=== PATIENT | female | born 1985 | race Two or more races ===

== ENCOUNTER 2023-01-25 15:09 | Inpatient (IN) | payer OTHER ==
[~2023-01-25] VITALS: Ht 162.6 cm; Wt 84.4 kg
[2023-02-08] MEDS ORDERED: PRENATAL PLUS1 EAC1 PO (00:32)
== END 2023-02-10 13:33 | disposition home or self-care (01) | DRG 807 ==
LOC: OB/GYN 02-07 20:09 → LDR 02-07 20:09 → OB/GYN 02-07 21:16 → LDR 02-07 21:20 → OB/GYN 02-08 09:05 → SURG 02-10 09:15 → OB/GYN 02-10 13:33
PROVIDERS: ADMIT Obstetrics & Gynecology Gynecology; ATTEND Obstetrics & Gynecology Gynecology
PROC: 10E0XZZ Delivery of Products of Conception, External Approach (ICD-10-PCS; principal; 2023-02-08)
PROC: 4A1HXCZ Monitoring of Products of Conception, Cardiac Rate, External Approach (ICD-10-PCS; 2023-02-08)
DX: O80 Encounter for full-term uncomplicated delivery (principal); Z37.0 Single live birth; Z3A.39 39 weeks gestation of pregnancy; Z20.822 Contact with and (suspected) exposure to COVID-19

== ENCOUNTER 2023-02-06 09:40 | Outpatient (CLI) | payer OTHER | END 2023-02-06 10:47 | disposition home or self-care (01) | LOC: NST 09:40 | PROVIDERS: ATTEND Obstetrics & Gynecology | DX: Z34.83 Encounter for supervision of other normal pregnancy, third trimester (principal) ==